=== PATIENT | female | born 1950 | race Caucasian/White ===

== ENCOUNTER 2025-08-09 06:36 | Inpatient (IN) | payer MEDICARE, OTHER ==
[~2025-08-09] VITALS: Ht 165.1 cm; Wt 74.4 kg
[2025-08-09] MEDS ORDERED: FENTANYL PF 250MCG/5ML AMPUL ONE (07:09)
[2025-08-09 07:10] LABS: PLATELET COUNT (AUTO) 221 K/uL (150-450); RED BLOOD CELL COUNT(AUTO) 4.47 MIL/uL (4.0-5.2); RED CELL DISTRIBUTION WIDTH 13.9 % (11.5-15.0); WHITE BLOOD COUNT (AUTO) 12.6 K/uL (4.3-11.0)
[2025-08-09] MEDS ORDERED: ROCURONIUM BROMIDE 50 MG/5 ML ONE (07:10)
[2025-08-09 07:19] LABS: CALCIUM, SERUM 9.3 mg/dL (8.5-10.1); CREATININE 1.0 mg/dL (0.6-1.3); SODIUM SERUM 140.0 mmol/L (136-145); UREA NITROGEN, BLOOD 17.0 mg/dL (7-18)
[2025-08-09 07:22] LABS: ASPARTATE AMINOTRANSFERASE 17.0 U/L (15-37); TOTAL PROTEIN, SERUM 7.0 g/dL (6.4-8.2)
[2025-08-09] MEDS ORDERED: ANESTHESIA TRAY IN PYXIS 1 EA TRAY MC ONE (07:25)
[2025-08-09] MEDS ORDERED: VANCOMYCIN 1 GM VIAL ONE (07:25)
[2025-08-09] MEDS ORDERED: LIDOCAINE 2%-EPI 1:100,000 30 ML VIAL ONE (07:25)
[2025-08-09] MEDS ORDERED: dexaMETHasone SOD PHOSPHATE 1 ML ONE (07:25)
[2025-08-09 07:44] LABS: INR 0.94 (0.91-1.10)
[2025-08-09] MEDS ORDERED: LABETALOL HCL IV 100MG VIAL ONE (07:59)
[2025-08-09] MEDS ORDERED: ZOLPIDEM TARTRATE 5 MG TABLET PO PRN (11:30)
[2025-08-09] MEDS ORDERED: HYDROCODONE/APAP 10/325MG TABLET PO PRN (11:30)
[2025-08-09] MEDS ORDERED: ONDANSETRON HCL/PF 4 MG/2 ML VIAL IVP PRN (11:30)
[2025-08-09] MEDS ORDERED: Z GUARD REMEDY 4 OZ OINT TP PRN (11:30)
[2025-08-09] MEDS ORDERED: ONDANSETRON HCL/PF 4 MG/2 ML VIAL IV PRN (11:30)
[2025-08-09] MEDS ORDERED: MAGNESIUM HYDROXIDE 30 ML UDC PO PRN (11:30)
[2025-08-09] MEDS ORDERED: ACETAMINOPHEN 325 MG TABLET PO PRN ×2 (11:30)
[2025-08-09] MEDS ORDERED: MAG HYDROX/AL HYDROX/SIMETH 30 ML UDC PO PRN (11:30)
[2025-08-09 12:00] VITALS: BP 113/60; TEMP 97.7; O2SAT 100
[2025-08-09] MEDS: HYDROMORPHONE 1 MG/1 ML DISP.SYRIN IV PRN (14:47)
[2025-08-09] MEDS: IV NS 0.9% 1,000 ML IV PRN (15:06)
[2025-08-09 16:00] VITALS: BP 101/62; TEMP 97.5; O2SAT 95
[2025-08-09] MEDS ORDERED: DEXTROSE 50%-WATER 50 ML DISP.SYRIN IV PRN (16:00)
[2025-08-09] MEDS ORDERED: INSULIN REGULAR, HUMAN 100 UNIT/ML 3 ML VIAL SQ PRN (16:00)
[2025-08-09] MEDS ORDERED: RIVA10TA PO (16:33)
[2025-08-09] MEDS: BLOOD SUGAR DIAGNOSTIC 1 EACH STRIP IN SCH (17:20)
[2025-08-09] MEDS ORDERED: MOUNJARO SQ (18:09)
[2025-08-09] MEDS ORDERED: FEBU40TA3 PO (18:09)
[2025-08-09] MEDS ORDERED: FURO20TA4 PO (18:09)
[2025-08-09] MEDS ORDERED: NEBI5TAB8 PO (18:09)
[2025-08-09] MEDS ORDERED: DULO60CA64 PO (18:09)
[2025-08-09] MEDS ORDERED: PITA2TAB PO (18:09)
[2025-08-09] MEDS ORDERED: DAPA10TA PO (18:09)
[2025-08-09] MEDS ORDERED: PANT40TA49 PO (18:09)
[2025-08-09] MEDS ORDERED: OLME20TA23 PO (18:09)
[2025-08-09] MEDS: VANCOMYCIN 1 GM in IV D5W 250ml IV SCH (18:37)
[2025-08-09 20:00] VITALS: BP 138/79; TEMP 98.1; O2SAT 95
[2025-08-10 06:44] LABS: CALCIUM, SERUM 9.0 mg/dL (8.5-10.1); CREATININE 1.0 mg/dL (0.6-1.3); PHOSPHORUS 4.6 mg/dL (2.5-4.9); SODIUM SERUM 141.0 mmol/L (136-145); UREA NITROGEN, BLOOD 15.0 mg/dL (7-18)
[2025-08-10 07:00] VITALS: BP 129/70; TEMP 97.9; O2SAT 95
[2025-08-10 07:20] LABS: PLATELET COUNT (AUTO) 192 K/uL (150-450); RED BLOOD CELL COUNT(AUTO) 3.66 MIL/uL (4.0-5.2); RED CELL DISTRIBUTION WIDTH 14.2 % (11.5-15.0); WHITE BLOOD COUNT (AUTO) 11.5 K/uL (4.3-11.0)
[2025-08-10] MEDS ORDERED: RIVA10TA PO (11:23)
[2025-08-10] MEDS ORDERED: RIVAROXABAN 10 MG TABLET PO SCH (20:00)
== END 2025-08-10 11:00 | disposition home or self-care (01) | DRG 142 ==
LOC: DS 06:36 → MED 10:57
PROVIDERS: ADMIT Nurse Practitioner Acute Care; ATTEND Nurse Practitioner Acute Care
PROC: 0NST04Z Reposition Right Mandible with Internal Fixation Device, Open Approach (ICD-10-PCS; 2025-08-09)
PROC: 0NUV07Z Supplement Left Mandible with Autologous Tissue Substitute, Open Approach (ICD-10-PCS; 2025-08-09)
PROC: 0NUT07Z Supplement Right Mandible with Autologous Tissue Substitute, Open Approach (ICD-10-PCS; 2025-08-09)
PROC: 0NUV0JZ Supplement Left Mandible with Synthetic Substitute, Open Approach (ICD-10-PCS; 2025-08-09)
PROC: 0N5T0ZZ Destruction of Right Mandible, Open Approach (ICD-10-PCS; 2025-08-09)
PROC: 0NSV04Z Reposition Left Mandible with Internal Fixation Device, Open Approach (ICD-10-PCS; principal; 2025-08-09 07:30)
DX: S02.69XB Fracture of mandible of other specified site, initial encounter for open fracture (principal); D16.5 Benign neoplasm of lower jaw bone; E11.9 Type 2 diabetes mellitus without complications; D72.829 Elevated white blood cell count, unspecified; E78.5 Hyperlipidemia, unspecified; Z79.01 Long term (current) use of anticoagulants; I10 Essential (primary) hypertension; X58.XXXA Exposure to other specified factors, initial encounter; Y93.9 Activity, unspecified; Y92.009 Unspecified place in unspecified non-institutional (private) residence as the place of occurrence of the external cause; M27.2 Inflammatory conditions of jaws; Z86.711 Personal history of pulmonary embolism; Z88.2 Allergy status to sulfonamides; Z86.718 Personal history of other venous thrombosis and embolism; Z79.85 Long-term (current) use of injectable non-insulin antidiabetic drugs
CPT/HCPCS: 36415; 80048-TC; 80053-TC; 82962-TC; 83735-TC; 84100-TC; 85025-TC; 85610-TC; 85730-TC; 88305-TC; 88311-TC; A4217; A4338; C1713; C1781; G0378; J0360; J0461; J0690; J1100; J1171; J1644; J1815; J2704; J3010; J3373; J3490; J7030; J7060